=== PATIENT | female | born 2000 | race Caucasian/White ===

== ENCOUNTER 2018-02-21 15:29 | Emergency (ER) | END 2018-02-21 17:40 | disposition home or self-care (01) ==

== ENCOUNTER 2018-04-27 12:52 | Emergency (ER) | END 2018-04-27 17:02 | disposition home or self-care (01) ==

== ENCOUNTER → 2019-02-02 | Outpatient (CLI) | payer BC ==
[~2019-02-02] MED LIST: BACI28.34 TOP; IBUP-1561 PO
== END | disposition home or self-care (01) ==
LOC: LAB 13:18
PROVIDERS: ATTEND Internal Medicine
DX: D64.9 Anemia, unspecified (principal); D81.9 Combined immunodeficiency, unspecified
CPT/HCPCS: 80053; 85025; 86480; 86706; 86735; 86762; 86765; 86787

== ENCOUNTER → 2019-03-30 | Outpatient (CLI) | payer BC | END | disposition home or self-care (01) | LOC: LAB 13:10 | PROVIDERS: ATTEND Internal Medicine | DX: B19.10 Unspecified viral hepatitis B without hepatic coma (principal) | CPT/HCPCS: 86706 ==